=== PATIENT | female | born 1945 | race Asian ===

== ENCOUNTER → 2016-08-28 | Outpatient (CLI) | payer MEDICARE, OTHER ==
[~2016-08-28] MED LIST: ASPI-556 PO; BENA5TAB3 PO; HYDR25TA PO; LETR2.5T6 PO; LISI-661 PO; LOVA20 PO; METF500T4 PO; NEBI5 PO; OSCAL PO; RANO500T3 PO
[2016-08-28 14:02] LABS: BASOPHILS % (AUTO) 0.3 % (0.0-2.0); HEMATOCRIT 43.1 % (36-46); HEMOGLOBIN 13.7 g/dL (12.0-16.0); LYMPHOCYTES # (AUTO) 1.4 K/uL (1.0-4.8); LYMPHOCYTES % (AUTO) 28.9 % (22.0-44.0); MEAN CORPUSCULAR HEMOGLOBIN 28.7 pg (26.0-34.0); MEAN CORPUSCULAR HGB CONC 31.7 G/dL (31.0-37.0); MEAN CORPUSCULAR VOLUME 91 fL (80-100); MONOCYTES # (AUTO) 0.4 K/uL (0.1-1.0); MONOCYTES % (AUTO) 8.2 % (2.0-9.0); NEUTROPHILS % (AUTO) 61.6 % (40.0-70.0); PLATELET COUNT (AUTO) 185 K/uL (150-450); RED BLOOD CELL COUNT(AUTO) 4.75 MIL/uL (4.00-5.20); RED CELL DISTRIBUTION WIDTH 13.6 % (11.5-14.5); WHITE BLOOD COUNT (AUTO) 4.8 K/uL (4.5-11.0)
[2016-08-28 14:13] LABS: CALCIUM, TOTAL 9.2 mg/dL (8.8-10.5); CHOL/HDL RATIO 3.6 (3.9-5.7); CREATININE 1.05 mg/dL (0.60-1.30); PHOSPHORUS 3.3 mg/dL (2.5-4.9)
[2016-08-28 14:14] LABS: HEMOGLOBIN A1C 8.4 % (4.5-6.2)
[2016-08-28 14:45] LABS: ADD UA MICROSCOPIC YES; APPEARANCE,URINE CLOUDY (CLEAR); GLUCOSE, URINE (UA) NEGATIVE (NEGATIVE); KETONES,URINE NEGATIVE (NEGATIVE); LEUKOCYTE ESTERASE ,URINE SMALL (NEGATIVE); OCCULT BLOOD,URINE TRACE (NEGATIVE); PROTEIN,URINE POS 1+ (NEGATIVE)
[2016-08-28 14:47] LABS: RBC,URINE 0-2 /HPF (0-2); SQUAMOUS EPITHELIAL CELL,UR Many /LPF (None Seen)
[2016-08-29 16:15] LABS: CREATININE, URINE (mALB) 112.6 mg/dL (Not Estab.)
== END | disposition home or self-care (01) ==
LOC: LABPV 09:48
PROVIDERS: ATTEND Internal Medicine Nephrology
DX: I12.9 Hypertensive chronic kidney disease with stage 1 through stage 4 chronic kidney disease, or unspecified chronic kidney disease (principal); N18.9 Chronic kidney disease, unspecified; E11.22 Type 2 diabetes mellitus with diabetic chronic kidney disease; E78.5 Hyperlipidemia, unspecified
CPT/HCPCS: 82043; 82306; 82570; 83036; 84156; 87086

== ENCOUNTER 2016-11-12 10:25 | Emergency (ER) | payer MEDICARE, OTHER ==
[~2016-11-12] VITALS: Ht 154.9 cm; Wt 67.7 kg
[2016-11-12] MEDS ORDERED: LINA5TAB PO (10:50)
[2016-11-12] MEDS ORDERED: LOSA25TA21 PO (10:50)
[2016-11-12] MEDS ORDERED: DOXY50 PO (10:50)
[2016-11-12] MEDS ORDERED: FENO48TA15 PO (10:50)
[2016-11-12 10:52] LABS: GLUCOSE,POINT OF CARE 133 MG/DL (70-110)
[2016-11-12 15:55] VITALS: BP 142/77
== END 2016-11-12 15:56 | disposition home or self-care (01) ==
LOC: EMS 10:27
DX: J18.9 Pneumonia, unspecified organism (principal); E11.9 Type 2 diabetes mellitus without complications; E78.00 Pure hypercholesterolemia, unspecified; I10 Essential (primary) hypertension; Z95.0 Presence of cardiac pacemaker; Z79.82 Long term (current) use of aspirin
CPT/HCPCS: 71020; 82962; 99284